=== PATIENT | female | born 1995 | race Caucasian/White ===

== ENCOUNTER 2021-02-02 13:47 | Emergency (ER) | payer OTHER ==
[~2021-02-02] VITALS: Ht 157.4 cm; Wt 86.2 kg
[2021-02-02] MEDS ORDERED: PRENATABS FA T1 EACH PO (13:59)
[2021-02-02] MEDS ORDERED: CEPHALEXIN500 M1 PO (15:35)
[2021-02-02] MEDS ORDERED: IBUPROFEN600 MG PO (15:35)
== END 2021-02-02 16:53 | disposition home or self-care (01) ==
LOC: ED 13:47
DX: S51.811A Laceration without foreign body of right forearm, initial encounter (principal); W25.XXXA Contact with sharp glass, initial encounter; Y93.89 Activity, other specified; Y92.89 Other specified places as the place of occurrence of the external cause; Y99.8 Other external cause status

== ENCOUNTER 2021-03-22 14:39 | Emergency (ER) | payer OTHER ==
[~2021-03-22] VITALS: Ht 157.4 cm; Wt 81.6 kg
[~2021-03-22 14:39] MED LIST: CEPHALEXIN500 M1 PO; IBUPROFEN600 MG PO; PRENATABS FA T1 EACH PO
== END 2021-03-22 16:07 | disposition left against medical advice (07) ==
LOC: ED 14:39
DX: Z53.21 Procedure and treatment not carried out due to patient leaving prior to being seen by health care provider (principal)

== ENCOUNTER 2021-08-17 20:02 | Emergency (ER) | payer OTHER ==
[~2021-08-17] VITALS: Ht 157.4 cm; Wt 100.2 kg
[2021-08-17] MEDS ORDERED: IRON240 MG PO (20:10)
== END 2021-08-17 20:48 | disposition home or self-care (01) ==
LOC: ED 20:02
DX: O9A.212 Injury, poisoning and certain other consequences of external causes complicating pregnancy, second trimester (principal); S70.01XA Contusion of right hip, initial encounter; Z3A.27 27 weeks gestation of pregnancy; W18.39XA Other fall on same level, initial encounter; Y93.89 Activity, other specified; Y92.89 Other specified places as the place of occurrence of the external cause; Y99.8 Other external cause status